=== PATIENT | female | born 1985 | race Caucasian/White ===

== ENCOUNTER 2017-07-16 11:51 | Emergency (ER) | payer OTHER ==
[~2017-07-16] VITALS: Ht 167.6 cm; Wt 76.4 kg
[2017-07-16 11:51] VITALS: BP 110/66
[~2017-07-16 11:51] MED LIST: COLA50CA3 PO; IBUP80TA PO; LANOOIN21 TOP; PERCOCET PO; SIME80TA PO
[2017-07-16] MEDS ORDERED: SERT-138 (11:56)
[2017-07-16] MEDS ORDERED: VALI5TAB PO (12:36)
[2017-07-16] MEDS ORDERED: NAPR500T PO (12:36)
== END 2017-07-16 12:44 | disposition home or self-care (01) ==
LOC: M ED 11:51
DX: M54.5 Low back pain (principal); J45.909 Unspecified asthma, uncomplicated; F32.9 Major depressive disorder, single episode, unspecified; Z88.0 Allergy status to penicillin